=== PATIENT | male | born 1980 | race Caucasian/White ===

== ENCOUNTER 2022-08-27 03:03 | Emergency (ER) | payer OTHER, SELFPAY ==
--- NOTE | ~2022-08-27 | XR_ITS ---
Clinical Indication: Chest pain PA and lateral views of the chest: Comparison: None Findings: The lungs are clear, without evidence of focal consolidation or pleural effusion. Cardiome diastinal silhouette is within normal limits. Bones and soft tissues are unremarkable. Impression: Normal chest. Reviewed, dictated and finalized at location . Impression: Normal chest.
--- NOTE | 2022-08-27 03:11 | ECG_ITS ---
Measurements Intervals [place] Rate: 97 P: 17 [place]: 163 QRS: 38 QRSD: 89 T: 35 QT: 335 QTc: 427 Interpretive Statements SINUS RHYTHM NONSPECIFIC ST AND T-WAVE ABNORMALITY NO PREVIOUS ECG AVAILABLE FOR COMPARISON Electronically Signed On 08-27-2022 15:46:36 CDT by Suyapa Horn M.D.
[2022-08-27 03:15] VITALS: BP 164/94; PULSE 100; RESP 14; TEMP 36.6; O2SAT 98
[2022-08-27 04:22] VITALS: BP 131/91; PULSE 92; RESP 16; O2SAT 98
[2022-08-27 04:48] VITALS: PULSE 97
[2022-08-27 05:11] LABS: Basophils Percent Auto 0.3 % (0.2-1.2); Eosinophils Absolute Auto 0.1 K/mm3 (0-0.3); Eosinophils Percent Auto 0.8 % (0-4.4); Hematocrit 46.5 % (42.0-52.0); Hemoglobin 16.5 g/dL (14.0-18.0); Immature Granulocyte Absolute 0.03 K/mm3 (0.00-0.031); Immature Granulocyte Percent A 0.3 % (0-0.5); Lymphocytes Absolute Auto 2.01 K/mm3 (0.9-3.2); Lymphocytes Percent Auto 20.4 % (18.3-44.2); Mean Corpuscular HGB Conc 35.5 g/dl (32-36); Mean Corpuscular Hemoglobin 30.9 pg (26-34); Mean Corpuscular Volume 87.1 fl (80-100); Mean Platelet Volume 9.6 fl (7.4-10.4); Monocytes Absolute Auto 0.5 K/mm3 (0.1-0.6); Monocytes Percent Auto 4.7 % (2.6-8.5); Neutrophils Absolute Auto 7.3 K/mm3 (1.3-6.7); Neutrophils Percent Auto 73.5 % (45.5-73.1); Platelet Count Result 218 k/mm3 (150-375); Red Blood Count 5.34 M/mm3 (4.6-6.20); Red Cell Distribution Width 13.1 % (11.5-14.5); White Blood Count 9.9 K/mm3 (4.5-10.0)
[2022-08-27 05:21] LABS: Alanine Aminotransferase 36 U/L (6-50); Albumin Level 5.2 g/dL (3.5-5.1); Alkaline Phosphatase 101 U/L (38-126); Anion Gap 11 mmol/L (8-16); Aspartate Amino Transferase 29 U/L (17-59); Blood Urea Nitrogen 14 mg/dL (9-20); Calcium 9.4 mg/dL (8.4-10.2); Carbon Dioxide 28 mmol/L (22-30); Chloride 102 mmol/L (98-107); Estimated CRCL calculation 117 ml/min; Estimated Glomerular Filt Rate > 60; Glucose 109 mg/dL (65-110); Lipase 97 U/L (23-300); Potassium 3.4 mmol/L (3.4-5.0); Sodium 141 mmol/L (137-145)
[2022-08-27 05:23] LABS: INR 1.1; Prothrombin Time 13.6 Seconds (11.1-14.7)
[2022-08-27 05:24] LABS: Partial Thromboplastin Time 34.1 SECONDS (22.3-36.8)
[2022-08-27 05:34] LABS: Troponin I < 0.012 ng/mL (0.000-0.034)
[2022-08-27 05:41] VITALS: BP 145/96; PULSE 84; RESP 16; O2SAT 98
--- NOTE | 2022-08-27 06:08 | ED.GENADULT ---
HPI - General Adult General Chief complaint: Chest Pain Stated complaint: Chest pain Time Seen by Provider: 08/27/22 05:53 History of Present Illness HPI narrative: 41-year-old male history of hypertension presented with chest pain. He reports he began feeling chest pain around 5 PM yesterday, sternal nonradiating, not worsened with exertion, without nausea, vomiting, diaphoresis. Patient continued to have pain so presents to the ED for further evaluation. He denied shortness of breath, nausea, vomiting, diaphoresis, abdominal pain, cough, fevers, chills, dysuria, diarrhea. He reports all systems have resolved by time of ED presentation. Past medical history: Hypertension Medications: Denied Social: Denied smoking, alcohol, recreational drugs Related Data Allergies Allergy/AdvReac Type Severity Reaction Status Date / Time No Known Allergies Allergy Verified 08/27/22 03:22 Review of Systems Review of Systems: See HPI Exam Narrative: APPEARANCE: Alert, calm and cooperative, no acute distress, phonating, sitting comfortably during visit HEAD: atraumatic EYES: Pupils equal round an reactive to light, extra ocular movements intact, no conjunctival injection NOSE: Normal no drainage NECK: Supple, without meningismus RESPIRATORY: Lungs clear to auscultation bilaterally, no wheezes/rales/rhonchi, breathing comfortably CARDIOVASCULAR: Regular rate and rhythm, no visible jugular venous distension ABDOMINAL: Soft, nontender, nondistended, no guarding, no rebound/peritoneal signs, no costovertebral tenderness to palpation BACK: no midline tenderness to palpation, no step offs EXTREMITIES: No edema, palpable peripheral pulses, warm, well perfused, no tenderness to bilateral calves. NEURO: Alert, moving all extremities symmetrically SKIN:: Warm, dry. Normal color PSYCHIATRIC: Normal affect/mood Course Vital Signs Vital signs: Vital Signs Temperature 97.9 F 08/27/22 03:15 Pulse Rate 100 08/27/22 03:15 Respiratory Rate 14 08/27/22 03:15 Blood Pressure 164/94 H 08/27/22 03:15 Pulse Oximetry 98 08/27/22 03:15 Oxygen Delivery Room Air 08/27/22 03:15 Temperature 97.9 F 08/27/22 03:15 Pulse Rate 86 08/27/22 06:55 Respiratory Rate 17 08/27/22 06:55 Blood Pressure 143/101 H 08/27/22 06:55 Pulse Oximetry 97 08/27/22 06:55 Oxygen Delivery Room Air 08/27/22 03:15 Medical Decision Making MDM Narrative Medical decision making narrative: Medical Decision Making 41-year-old male history of hypertension presented with sternal chest pain, intermittent, nonexertional. All symptoms resolved by time of ED presentation. EKG nonischemic. Differential diagnosis includes but not limited to: ACS versus pneumonia versus pneumothorax versus PE. HEART score 1 for risk factor (HTN). CXR clear. Bloodwork reviewed, noted to be unremarkable. Physical exam benign, sitting comfortably, vitals stable. The patient tolerated oral intake, is alert and oriented, speaking with clear speech, ambulated with steady gait, and has remained hemodynamically stable throughout the ED visit. History and exam suggestive of low risk chest pain. He has close follow up with primary care. Areas of diagnostic uncertainty discussed and strict return precautions shared with patient; encouraged to return to the emergency department if symptoms returned or worsened. The patient is safe to be discharged with follow up, provided he abide by the verbalized and written instruction, to which the patient has express understanding. Vital Signs Vital Signs: Vital Signs Temperature 97.9 F 08/27/22 03:15 Pulse Rate 100 08/27/22 03:15 Respiratory Rate 14 08/27/22 03:15 Blood Pressure 164/94 H 08/27/22 03:15 Pulse Oximetry 98 08/27/22 03:15 Oxygen Delivery Room Air 08/27/22 03:15 Temperature 97.9 F 08/27/22 03:15 Pulse Rate 86 08/27/22 06:55 Respiratory Rate 17 08/27/22 06:55 Blood Pressure 143/101 H 08/27/22
[2022-08-27 06:55] VITALS: BP 143/101; PULSE 86; RESP 17; O2SAT 97
[2022-08-27 07:11] LABS: D Dimer < 0.27 ug/mL (<0.48)
[2022-08-27 07:40] VITALS: BP 144/95; PULSE 94; RESP 18; O2SAT 98
== END 2022-08-27 07:45 | disposition home or self-care (01) ==
PROVIDERS: Emergency Provider Emergency Medicine
DX: R07.9 Chest pain, unspecified (principal); I10 Essential (primary) hypertension; R94.31 Abnormal electrocardiogram [ECG] [EKG]
CPT/HCPCS: 36415; 71046; 80053; 83690; 84484; 85025; 85380; 85610; 85730; 93005; 99284